=== PATIENT | male | born 1980 | race Caucasian/White ===

== ENCOUNTER 2019-08-10 09:30 | Emergency (ER) | payer BC ==
[~2019-08-10] VITALS: Ht 170.2 cm; Wt 99.8 kg
--- NOTE | 2019-08-10 09:33 | NUR ---
PT STRIPED FULLY AND EXPOSED FOR TRAUMA EVAL WITH GOWN PLACED.
[2019-08-10] MEDS ORDERED: HALOPERIDOL LACTATE 5 MG/ML VIAL ONE (10:17)
--- NOTE | 2019-08-10 10:25 | Diagnostic Imaging Report ---
CT BRAIN WO HISTORY: Trauma, altered mental status COMPARISON: None. TECHNIQUE: Noncontrast axial scans were obtained from skull base to the vertex. Coronal and sagittal reconstructions obtained from the axial data. One or more of the following dose reduction techniques were used: Automated exposure control, adjustment of the mA and/or kV according to patient size, and/or utilization of iterative reconstruction technique. Beam hardening artifacts obscure some details. DISCUSSION: Scalp/Skull: Unremarkable. Brain sulci: Appropriate for patient's age. Ventricles: Normal in size and configuration. No hydrocephalus. Extra-axial spaces: No masses or fluid collections. Minimal carotid siphon calcifications are present. Parenchyma: No abnormal densities. No mass, hemorrhage, or large vascular territory acute infarct. Dural sinuses: No abnormal densities. Sellar/Suprasellar region: Intact. Skull base: Intact. Incidental findings: None. IMPRESSION: No acute intracranial abnormalities. Signed by: Dr. Nathaniel Espinal M.D. on 08/10/2019 10:21 AM
[2019-08-10] MEDS ORDERED: LORAZEPAM INJ 2 MG/ML VIAL ONE (10:26)
--- NOTE | 2019-08-10 10:27 | Diagnostic Imaging Report ---
CT CERVICAL SPINE WO HISTORY: Trauma COMPARISON: Concurrent head CT TECHNIQUE: CT of the cervical spine without contrast. Sagittal and coronal reformations were created. One or more of the following dose reduction techniques were used: Automated exposure control, adjustment of the mA and/or kV according to patient size, and/or utilization of iterative reconstruction technique. FINDINGS: Cervical lordosis is straightened. There is no scoliosis or subluxation. No fractures, compression deformity, or destructive osseous lesions are seen. The craniocervical junction is intact. No gross spinal canal masses are seen. The paravertebral and paraspinal soft tissues are unremarkable. There is mild spondylotic changes C5-C6. There may be mild canal stenosis at C5-C6 due to disc degeneration. Mild atlantoaxial arthrosis is present as well. IMPRESSION: No acute osseous abnormalities. Mild C5-C6 spondylosis. Signed by: Dr. Nathaniel Espinal M.D. on 08/10/2019 10:24 AM
--- NOTE | 2019-08-10 10:29 | NUR ---
MD/RN'S/RADIOLOGY TECHS ALL IN ROOM WITH PT; ON MONITORS
--- NOTE | 2019-08-10 10:52 | NUR ---
ARRIVED WITH BYSTANDER
--- NOTE | 2019-08-10 10:53 | NUR ---
NOTIFIED LAB OF URGENCY FOR RESULTS
[2019-08-10 10:54] LABS: BASOPHILS % 0.3 % (0.0-1.0); EOSINOPHILS % 0.1 % (0.0-6.0); HEMATOCRIT 38.4 % (38.2-49.6); HEMOGLOBIN 11.8 g/dL (14.0-18.0); LYMPHOCYTES # (AUTO) 1.1 (1.0-3.2); LYMPHOCYTES % 7.8 % (18.0-39.1); MEAN CORPUSCULAR HEMOGLOBIN 22.8 pg (28-32); MEAN CORPUSCULAR HGB CONC 30.7 g/dL (31-35); MEAN CORPUSCULAR VOLUME 74.3 fL (81-99); MONOCYTES # (AUTO) 1.2 (0.2-0.8); MONOCYTES % 8.2 % (4.4-11.3); NEUTROPHILS # (AUTO) 11.7 (2.1-6.9); NEUTROPHILS % 83.2 % (38.7-80.0); PLATELET COUNT 261 x10e3/uL (140-360); RED BLOOD COUNT 5.17 x10e6/uL (4.3-5.7); RED CELL DISTRIBUTION WIDTH 19.2 % (11.7-14.4)
[2019-08-10] MEDS ORDERED: HALOPERIDOL LACTATE 5 MG/ML VIAL IM ONE (11:00)
[2019-08-10] MEDS: LORAZEPAM INJ 2 MG/ML VIAL IV ONE ×2 (11:10→14:09)
[2019-08-10 11:13] LABS: ACETAMINOPHEN < 3 ug/mL (10-30); SALICYLATE < 5.0 mg/dL (0-30)
[2019-08-10 11:15] LABS: ALBUMIN 4.1 g/dL (3.5-5.0); ALBUMIN/GLOBULIN RATIO 1.4 (0.8-2.0); ANION GAP 19.7 mmol/L (8-16); CALCIUM 9.4 mg/dL (8.4-10.2); CREATININE, SERUM 1.5 mg/dL (0.72-1.25); POTASSIUM 4.7 mmol/L (3.5-5.1)
[2019-08-10 11:22] LABS: CREATINE KINASE MB 5.7 ng/mL (0-5.0)
[2019-08-10] MEDS ORDERED: SODIUM CHLORIDE 0.9% 1000ML 1,000 ML IV STA ×2 (12:22)
[2019-08-10] MEDS ORDERED: SODIUM CHLORIDE 0.9% 1000ML 1,000 ML IV SCH (12:30)
[2019-08-10 12:52] LABS: AMPHETAMINES SCREEN,URINE NEGATIVE (NEGATIVE); BENZODIAZEPINES SCREEN,URINE POSITIVE (NEGATIVE); PHENCYCLIDINE SCREEN,URINE NEGATIVE (NEGATIVE)
--- NOTE | 2019-08-10 13:21 | NUR ---
ems called to say they are running late and will be here in about 30 mins.
[2019-08-10] MEDS ORDERED: SODIUM CHLORIDE 0.9% 50ML 0 ML ONE (13:57)
[2019-08-10] MEDS ORDERED: IOPAMIDOL 370 MG/ML 200 ML INFUS..BTL INJ ONE (13:57)
[2019-08-10 14:20] VITALS: BP 135/68
== END 2019-08-10 14:10 | disposition other institution (70) ==
LOC: ER 09:34
DX: S06.0X9A Concussion with loss of consciousness of unspecified duration, initial encounter (principal); T79.6XXA Traumatic ischemia of muscle, initial encounter; N17.9 Acute kidney failure, unspecified; S00.81XA Abrasion of other part of head, initial encounter; Y04.8XXA Assault by other bodily force, initial encounter; Y99.0 Civilian activity done for income or pay
CPT/HCPCS: 36415; 70450; 72125; 80053; 80307; 80320; 80329 ×2; 82550; 82553; 84484; 85025; 99285; J1630; J2060; J7030; Q9967